=== PATIENT | female | born 1990 | race American Indian/Alaskan Native ===

== ENCOUNTER 2017-03-02 07:36 | Emergency (ER) | payer SELFPAY ==
[2017-03-02] MEDS ORDERED: TYLENOL PO ONE (08:10)
--- NOTE | 2017-03-02 08:26 | Emergency Department Report ---
ED ENT HPI - General Chief complaint: Dental/Oral Stated complaint: left jaw pain Source: patient Mode of arrival: Ambulatory Limitations: No Limitations - History of Present Illness Initial comments: 26 y/o F presents with left sided jaw pain that has been on and off for the past 1 month. Pt was seen by a dentist and x-rays were conducted about 1 month ago with no signs of infection at that time, pt states that she was told that it was her wisdom teeth coming in. Pt denies any chest pain, SOB, left arm pain , numbness, or tingling. Pt was given amoxicillin about 1 month ago for the toothache and then last week she was given some clindamycin for the toothache and pain. Pt states that she still has 5 days worth left. Pt has been taking ibuprofen otc with no relief of the pain. Pt also reports to increased pain with movement of the jaw, mild fever, and left ear pain. Pt denies pregancy at this time. NKDA. FIGUEROA complaint: tooth pain, ear pain -: month(s) (1 month) Location: L ear Severity: severe Severity scale (0 -10): 9 Quality: constant Consistency: constant Improves with: NSAID Worsens with: none Context- Dental: history of dental caries Associated Symptoms: fever, toothache. denies: cough, pain with swallowing, sore throat, hearing loss - Related Data Previous Rx's Medication Instructions Recorded Last Taken Type Acetaminophen/Codeine [Tylenol 1 tab PO Q6H PRN #20 tab 03/02/17 Unknown Rx /Codeine # 3 tab] Allergies Allergy/AdvReac Type Severity Reaction Status Date / Time No Known Allergies Allergy Unverified 03/02/17 07:42 ED Dental HPI - General Chief complaint: Dental/Oral Stated complaint: left jaw pain Source: patient Mode of arrival: Ambulatory Limitations: No Limitations - History of Present Illness complaint: tooth pain, ear pain (left sided) -: month(s) (1 month) Severity: severe Quality: other (throbbing) Consistency: constant, intermittent Improves with: NSAID Worsens with: none Context- Dental: history of dental caries Dental Associated Symptons: Yes: Headache, Earache. No: Sore Throat, Gum Swelling - Related Data Previous Rx's Medication Instructions Recorded Last Taken Type Acetaminophen/Codeine [Tylenol 1 tab PO Q6H PRN #20 tab 03/02/17 Unknown Rx /Codeine # 3 tab] Allergies Allergy/AdvReac Type Severity Reaction Status Date / Time No Known Allergies Allergy Unverified 03/02/17 07:42 ED Review of Systems ROS: Stated complaint: left jaw pain Other details as noted in HPI Constitutional: fever (she states she had a low-grade/mild fever last week but has since resolved) Eyes: denies: eye pain, eye discharge, vision change ENT: ear pain, dental pain. denies: throat pain, hearing loss, epistaxis Respiratory: denies: cough, shortness of breath, wheezing Cardiovascular: denies: chest pain, palpitations, dyspnea on exertion Endocrine: no symptoms reported Gastrointestinal: denies: abdominal pain, nausea, diarrhea Genitourinary: denies: urgency, dysuria, discharge Musculoskeletal: denies: back pain, joint swelling, arthralgia Skin: denies: rash, lesions Neurological: headache. 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 - Social History Smoking Status: Never Smoker Substance Use Type: Alcohol, Non Opiate Pain, Prescribed - Medications Home Medications: Home Medications Medication Instructions Recorded Confirmed Last Taken Type Acetaminophen/Codeine [Tylenol 1 tab PO Q6H PRN #20 tab 03/02/17 Unknown Rx /Codeine # 3 tab] ED Physical Exam - General Limitations: No Limitations General appearance: alert, in no apparent distress - Head Head exam: Present: atraumatic, normocephalic - Eye Eye exam: Present: normal appearance - ENT ENT exam: Present: mucous membranes moist, TM's normal bilaterally, normal external ear exam, other (there was no evidence of infection/abscess noted on examation, there was clicking of the left TMJ joint, there was radiation of the pain to the left ear and left jaw, no redness, swelling noted, appears to be wisdom teeth growing, no muffled voice, airway patent, no neck stiffness) - Neck Neck exam: Present: normal inspection, full ROM - Respiratory Respiratory exam: Present: normal lung sounds bilaterally. Absent: respiratory distress - Cardiovascular Cardiovascular Exam: Present: regular rate, normal rhythm. Absent: systolic murmur, diastolic murmur, rubs, gallop - Neurological Exam Neurological exam: Present: alert, oriented X3, CN II-XII intact - Psychiatric Psychiatric exam: Present: normal affect, normal mood - Skin Skin exam: Present: warm, dry, intact, normal color. Absent: rash ED Course Vital Signs 03/02/17 03/02/17 03/02/17 07:42 08:28 08:45 Temperature 98.6 F 98.5 F Pulse Rate 75 67 Respiratory 17 16 16 Rate Blood Pressure 147/85 Blood Pressure 119/80 [Left] O2 Sat by Pulse 100 100 Oximetry ED Medical Decision Making - Medical Decision Making 26 y/o F presented with 1 month of on and off left sided tooth pain for the past 1 month. Pt was seen by her dentist and PCP for the same issues as she was complaining of tooth pain and left ear pain. Xrays were conducted at that time and were not indicative of any infection. Pt was given Amoxil 1 month ago and then clindamycin about 5 days ago. There was no evidence of infection/ abscess on examination today, no muffled voice, or signs of resp distress. Pt was given extra strength tylenol this morning in the ER about 10 minutes prior to discharge therefore she was still in pain at discharge as it will take some time to start working. Pt was educated that I would continue the clindamycin for the next 5 days with probitoics and was given some tylenol #3 for the pain and to help her sleep. Pt was educated on TMJ and educated on home remedies; she was encouraged to follow-up with dentist within 1 week. Pt was discharged with vitals stable and in no acute resp distress. Alert and oriented. Critical care attestation.: If time is entered above; I have spent that time in minutes in the direct care of this critically ill patient, excluding procedure time. ED Disposition Clinical Impression: TMJ (temporomandibular joint disorder), Toothache Disposition: DC-01 TO HOME OR SELFCARE Is pt being admited?: No Does the pt Need Aspirin: No Condition: Stable Instructions: Acetaminophen/Codeine (By mouth), Temporomandibular Disorder (ED) , Toothache (ED) Additional Instructions: Please continue with the rest of the clindamycin for the last 5 days, take probiotics with this medications. Please take the tylenol with codeine at night as it may make you drowsy. Please try warm compresses to the site, massages, and eat soft foods. Please follow-up with dentist within 3-5 days. Return to the ER immediately if your symptoms worsen such as: chest pain, SOB, increased pain, fever, left arm pain, numbness, or tingling. Prescriptions: Acetaminophen/Codeine [Tylenol /Codeine # 3 tab] 1 tab PO Q6H PRN #20 tab PRN Reason: Pain Referrals: PRIMARY CARE, [Primary Care Provider] - 3-5 Days [facility] [Outside] - 3-5 Days [facility] [Outside] - 3-5 Days Forms: Work/School Release Form(ED)
[2017-03-02 08:46] VITALS: BP 119/80
== END 2017-03-02 08:58 | disposition home or self-care (01) ==
LOC: ED 07:36
DX: M26.602 Left temporomandibular joint disorder, unspecified (principal); K08.89 Other specified disorders of teeth and supporting structures; D64.9 Anemia, unspecified
CPT/HCPCS: 99282

== ENCOUNTER 2017-03-29 13:50 | Emergency (ER) | payer SELFPAY ==
[2017-03-29 14:10] VITALS: BP 129/75
[2017-03-29 15:44] LABS: Bilirubin,Urine NEG (Negative); Blood,Urine NEG (Negative); Ketones,Urine NEG (Negative); Leukocyte Esterase,Urine MOD (Negative); Mucus,Urine 3+ /HPF; Nitrite,Urine NEG (Negative); Urobilinogen,Urine < 2.0 mg/dL (<2.0)
[2017-03-29] MEDS ORDERED: XYLOCAINE 1% MPF 5 mL INFILTRATI ONE (16:43)
[2017-03-29] MEDS ORDERED: ROCEPHIN IM ONE (16:43)
[2017-03-29] MEDS ORDERED: ZITHROMAX PO ONE (16:43)
--- NOTE | 2017-03-29 16:49 | Emergency Department Report ---
ED Female HPI - General Chief complaint: Urogenital-Female Stated complaint: PELVIC PAIN Time Seen by Provider: 03/29/17 14:09 Source: patient Mode of arrival: Ambulatory Limitations: No Limitations - History of Present Illness Initial comments: This 27-year-old female nontoxic, well nourished in appearance, no acute signs of distress presents to the ED complaining of left-sided pelvic pain, vaginal discharge, and vaginal irritation 2 days. Patient describes left-sided pelvic pain as intermittent scrubs as aching level of 4 out of 10. Patient denies any abdominal pain, nausea, vomiting, chest pain, shortness of breath, back pain, dysuria, polyuria, hematuria, stiff neck or headache. Patient describes vaginal discharge as white color with slight foul order. She denies any allergies or past medical history. Patient stated she had a sexual intercourse and developed the vaginal discharge and is concerned about a possible STD. MD Complaint: vaginal discharge, pelvic pain, possible STD -: Gradual, days(s) (2) Location: labia (irritation) Radiation: non-radiating Severity: mild Severity scale (0 -10): 4 Quality: aching Consistency: intermittent Improves with: none Worsens with: none Are you Now?: No Last Menstrual Period: 03/12/17 EDC: 12/17/17 Associated Symptoms: vaginal discharge. denies: vaginal bleeding, abdominal pain, nausea/vomiting, fever/chills, headaches, loss of appetite, dysuria, hematuria, rash, seizure, shortness of breath, syncope, weakness - Related Data Sexually active: Yes Previous Rx's Medication Instructions Recorded Last Taken Type Acetaminophen/Codeine [Tylenol 1 tab PO Q6H PRN #20 tab 03/02/17 Unknown Rx /Codeine # 3 tab] Fluconazole [Diflucan TAB] 150 mg PO ONCE #1 tablet 03/29/17 Unknown Rx Sulfamethoxazole/Trimethoprim 1 each PO BID #14 tablet 03/29/17 Unknown Rx [Bactrim Ds Tablet] metroNIDAZOLE [Flagyl] 500 mg PO Q12HR #14 tab 03/29/17 Unknown Rx Allergies Allergy/AdvReac Type Severity Reaction Status Date / Time No Known Allergies Allergy Unverified 03/02/17 07:42 ED Review of Systems ROS: Stated complaint: PELVIC PAIN Other details as noted in HPI Constitutional: denies: chills, fever Eyes: denies: eye pain, eye discharge, vision change ENT: denies: ear pain, throat pain Respiratory: denies: cough, shortness of breath, wheezing Cardiovascular: denies: chest pain, palpitations Endocrine: no symptoms reported Gastrointestinal: denies: abdominal pain, nausea, diarrhea Genitourinary: discharge. 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 - Social History Smoking Status: Never Smoker Substance Use Type: None - Medications Home Medications: Home Medications Medication Instructions Recorded Confirmed Last Taken Type Acetaminophen/Codeine [Tylenol 1 tab PO Q6H PRN #20 tab 03/02/17 Unknown Rx /Codeine # 3 tab] Fluconazole [Diflucan TAB] 150 mg PO ONCE #1 tablet 03/29/17 Unknown Rx Sulfamethoxazole/Trimethoprim 1 each PO BID #14 tablet 03/29/17 Unknown Rx [Bactrim Ds Tablet] metroNIDAZOLE [Flagyl] 500 mg PO Q12HR #14 tab 03/29/17 Unknown Rx ED Physical Exam - General Limitations: No Limitations General appearance: alert, in no apparent distress - Head Head exam: Present: atraumatic, normocephalic, normal inspection - Eye Eye exam: Present: normal appearance, PERRL, EOMI. Absent: scleral icterus, conjunctival injection, nystagmus, periorbital swelling, periorbital tenderness Pupils: Present: normal accommodation - ENT ENT exam: Present: normal exam, normal orophraynx, mucous membranes moist, TM's normal bilaterally, normal external ear exam - Neck Neck exam: Present: normal inspection, full ROM. Absent: tenderness, meningismus, lymphadenopathy, thyromegaly - Respiratory Respiratory exam: Present: normal lung sounds bilaterally. Absent: respiratory distress, wheezes, rales, rhonchi, stridor, chest wall tenderness, accessory muscle use, decreased breath sounds, prolonged expiratory - Cardiovascular Cardiovascular Exam: Present: regular rate, normal rhythm, normal heart sounds. Absent: bradycardia, tachycardia, irregular rhythm, systolic murmur, diastolic murmur, rubs, gallop - GI/Abdominal GI/Abdominal exam: Present: soft, normal bowel sounds. Absent: distended, tenderness, guarding, rebound, rigid, diminished bowel sounds - Expanded GI/Abdominal Exam Expanded GI/Abdominal exam: Absent: psoas sign, obturator sign, heel tap sign, Graham's sign, Rovsing's sign, tenderness at [place]'s [place], ascites - Rectal Rectal exam: Present: deferred - External exam: Present: normal external exam, other (wastewater engineer Tania RN present during exam). Absent: erythema, swelling, lesions, lacerations, ecchymosis, bleeding Speculum exam: Present: normal speculum exam, vaginal discharge (white thick colored with no odor), other (wastewater engineer Tania RN present during exam). Absent: erythema, cervical discharge, vaginal bleeding, foreign body, tissue, laceration Bi-manual exam: Present: normal bi-manual exam, other (wastewater engineer Tania RN present during exam). Absent: cervical motion tendernes, adnexal tenderness, adnexal mass, uterine enlargement, uterine tenderness - Extremities Exam Extremities exam: Present: normal inspection, full ROM, normal capillary refill. Absent: tenderness, pedal edema, joint swelling, calf tenderness - Back Exam Back exam: Present: normal inspection, full ROM. Absent: tenderness, CVA tenderness (R), CVA tenderness (L), muscle spasm, paraspinal tenderness, vertebral tenderness, rash noted - Neurological Exam Neurological exam: Present: alert, oriented X3, CN II-XII intact, normal gait, reflexes normal - Psychiatric Psychiatric exam: Present: normal affect, normal mood - Skin Skin exam: Present: warm, dry, intact, normal color. Absent: rash ED Course Vital Signs 03/29/17 14:02 Temperature 98.3 F Pulse Rate 70 Respiratory 18 Rate Blood Pressure 129/75 O2 Sat by Pulse 100 Oximetry - Reevaluation(s) Reevaluation #1: 03/29/17 16:49 Patient is speaking in full sentences with no signs of distress noted. ED Medical Decision Making - Medical Decision Making This is a 27-year-old female that presents with UTI and BV. Patient was developed by myself patient still. UA has been obtained indicates patient had a UTI and wet prep has been obtained with greater than 20%clue cells. Patient be treated with Bactrim and Flagyl. Patient received Rocephin and azithromycin ED because patient stated she wanted to be treated enterically for STD. Chlamydia and gonorrhea is pending. Patient was instructed to return in 3 days to obtain results of gonorrhea and chlamydia. Patient was instructed to follow- up with a primary care doctor in 3-5 days or if symptoms worsen and continue return to emergency room as soon as possible possible. Patient is hemodynamically stable with stable vital signs. Patient states he is feeling better. At time time of discharge, the patient does not seem toxic or ill in appearance. No acute signs of distress noted. Patient agrees to discharge treatment plan of care. No further questions noted by the patient. Critical care attestation.: If time is entered above; I have spent that time in minutes in the direct care of this critically ill patient, excluding procedure time. ED Disposition Disposition: DC-01 TO HOME OR SELFCARE Is pt being admited?: No Does the pt Need Aspirin: No Condition: Stable Instructions: Sulfamethoxazole/Trimethoprim (By mouth), Metronidazole (By mouth ), Bacterial Vaginosis (ED), Urinary Tract Infection in Women (ED) Additional Instructions: Follow-up with a primary care doctor in 3-5 days or if symptoms worsen and continue return to emergency room as soon as possible. Prescriptions: Fluconazole [Diflucan TAB] 150 mg PO ONCE #1 tablet metroNIDAZOLE [Flagyl] 500 mg PO Q12HR #14 tab Sulfamethoxazole/Trimethoprim [Bactrim Ds Tablet] 1 each PO BID #14 tablet Referrals: JIMI TRACY MD [Primary Care Provider] - 3-5 Days FRAN BALL MD [Staff Physician] - 3-5 Days [facility] [Outside] - 3-5 Days [facility] [Outside] - 3-5 Days Forms: STI Treatment and Prevention, Work/School Release Form(ED)
== END 2017-03-29 18:29 | disposition home or self-care (01) ==
LOC: ED 13:50
DX: R10.2 Pelvic and perineal pain (principal); N89.8 Other specified noninflammatory disorders of vagina
CPT/HCPCS: 81001; 81025; 87210; 87591; 96372; 99284; J0696